=== PATIENT | male | born 1955 | race Caucasian/White ===

== ENCOUNTER 2022-02-01 11:08 | Emergency (ER) | payer MEDICARE, BC ==
[2022-02-01 11:38] LABS: ESTIMATED GFR 66 mL/min (>60)
[2022-02-01] MEDS: Sodium Chloride 0.9% 10 ML Syringe FLUSH PRN (11:43)
== END 2022-02-01 12:32 | disposition home or self-care (01) ==
LOC: FB.ED 11:08
DX: E86.0 Dehydration (principal); I48.91 Unspecified atrial fibrillation; I10 Essential (primary) hypertension; Z79.01 Long term (current) use of anticoagulants; Z79.899 Other long term (current) drug therapy
CPT/HCPCS: 36415; 80053; 85025; 93005; 99284; J3490